=== PATIENT | male | born 1960 | race Asian ===

== ENCOUNTER → 2025-03-14 | Outpatient (CLI) | payer OTHER, SELFPAY ==
[2025-03-14 11:07] LABS: Collection Type, Urine Clean Catch
[2025-03-14 11:33] LABS: Basophils # (Auto) 0.1 Thou/mm3 (0.0-0.2); Basophils % (Auto) 1 % (0-2.5); Eosinophils # (Auto) 0.1 Thou/mm3 (0.0-0.5); Eosinophils % (Auto) 2 % (0-10); Hematocrit 39.4 % (41.0-53.0); Hemoglobin 13.7 g/dL (13.5-16.0); Immature Granulocytes % (Auto) 0 % (0-0); Immature Granulocytes Auto 0.02 Thou/mm3 (0.00-0.00); Lymphocytes # (Auto) 2.3 Thou/mm3 (1.0-4.8); Lymphocytes % (Auto) 33 % (10-50); Mean Corpuscular HGB Conc 34.8 g/dl (31.0-37.0); Mean Corpuscular Hemoglobin 31.9 pg (25.0-35.0); Mean Corpuscular Volume 92 fL (80-100); Monocytes # (Auto) 0.6 Thou/mm3 (0.0-0.8); Monocytes % (Auto) 9 % (0-12); Neutrophils # (Auto) 3.8 Thou/mm3 (1.8-7.7); Neutrophils % (Auto) 55 % (37-80); Nucleated Red Blood Cell % 0 /100 WBC (0); Platelet Count 234 Thou/mm3 (140-440); RDW Standard Deviation 39.1 fL (35.1-43.9); White Blood Count 6.9 Thou/mm3 (3.8-10.6)
[2025-03-14 11:33] LABS: Bilirubin,Urine Negative (Negative); Blood,Urine Negative (Negative); Clarity,Urine Clear (Clear/Hazy); Color,Urine Lt-Yellow (Lt Yel-Yel); Glucose, Urine Negative (Negative); Ketones,Urine Negative (Negative); Leukocyte Esterase,Urine Negative (Negative); Nitrite,Urine Negative (Negative); Protein,Urine Negative (Neg - Trace); RBC,Urine 1 /hpf (0-3); Specific Gravity,Urine 1.021 (1.001-1.035); Squamous Epithelial Cell,Urine < 1 /hpf (0-5); Urobilinogen,Urine Negative mg/dL (0.0-1.0); WBC,Urine 1 /hpf (0-5)
[2025-03-14 11:43] LABS: Glucose Estimated Average 169 mg/dL (80-131); Hemoglobin A1C 7.5 % Hgb (4.8-6.0)
[2025-03-14 11:45] LABS: Creatinine MALB Rnd Ur 120 mg/dL (30-125); Microalbumin Creat Ratio 8 mg/gCrea (<30); Microalbumin, Random Urine 9 mg/L (0-300)
[2025-03-14 11:47] LABS: Alanine Aminotransferase 12 U/L (10-49); Albumin, Serum 4.5 gm/dL (3.4-4.8); Albumin/Globulin Ratio 1.9 (1.2-2.2); Alkaline Phosphatase 32 U/L (46-116); Anion Gap 9 (7-16); BUN/Creatinine Ratio 14 Ratio (12-20); Bilirubin,Total 0.9 mg/dL (0.3-1.2); Blood Urea Nitrogen 13 mg/dL (9-23); Calcium 8.9 mg/dL (8.3-10.6); Calcium (Corrected) 8.9 mg/dL (8.5-10.1); Carbon Dioxide 29.1 mMol/L (20.0-31.0); Cardiac Risk Estimate 2.1 RATIO (4.0-6.7); Chloride 103 mMol/L (98-107); Cholesterol 90 mg/dL (132-200); Creatinine (Component) 0.9 mg/dL (0.6-1.3); Globulin 2.4 gm/dL (2.3-3.5); Glucose 127 mg/dL (74-106); HDL Cholesterol 42 mg/dL (40-60); LDL Cholesterol,Calculated 35 mg/dL (0-130); Osmolality,Calculated 283 (275-295); Potassium 3.7 mMol/L (3.4-5.1); Sodium 141 mMol/L (136-145); Thyroid Stimulating Hormone 0.54 uIU/mL (0.55-4.78); Total Protein 6.9 gm/dL (5.7-8.2); Triglycerides 65 mg/dL (30-150); eGFR > 60 See Note
== END | disposition home or self-care (01) ==
LOC: COPL 10:42
PROVIDERS: PCP Family Medicine; Referring Provider Family Medicine; Visit Provider Family Medicine
DX: Z00.00 Encounter for general adult medical examination without abnormal findings (principal); E11.9 Type 2 diabetes mellitus without complications; E78.2 Mixed hyperlipidemia; R03.0 Elevated blood-pressure reading, without diagnosis of hypertension
CPT/HCPCS: 36415; 80053; 80061; 81001; 82043; 82570; 83036; 84443; 85025